=== PATIENT | male | born 1995 | race Caucasian/White ===

== ENCOUNTER 2017-03-10 21:02 | Emergency (ER) | payer MEDICAID ==
[~2017-03-10] VITALS: Ht 162.6 cm; Wt 59.0 kg
[2017-03-10] MEDS ORDERED: BACITRACIN ZINC OINT UDPKT TOP ONE (23:15)
[2017-03-11 01:04] VITALS: BP 121/67
== END 2017-03-11 01:17 | disposition short-term general hospital (02) ==
LOC: ER 21:03
DX: T20.20XA Burn of second degree of head, face, and neck, unspecified site, initial encounter (principal); F41.9 Anxiety disorder, unspecified; F12.10 Cannabis abuse, uncomplicated; X12.XXXA Contact with other hot fluids, initial encounter; Y93.89 Activity, other specified; Y99.8 Other external cause status; Y92.89 Other specified places as the place of occurrence of the external cause; Z90.49 Acquired absence of other specified parts of digestive tract
CPT/HCPCS: 99285; Z7610